=== PATIENT | female | born 1965 | race Caucasian/White ===

== ENCOUNTER 2016-10-11 06:04 | Inpatient (IN) ==
[2016-10-11] MEDS ORDERED: NS 1,000 ML IV ONE ×2 (06:35→10:36)
[2016-10-11 06:39] LABS: ALLEN TEST YES; BE -0.5 mmoll (-3.0-3.0); BLOOD TYPE ARTERIAL; DRAW SITE R RADIAL; MODALITY ROOM AIR; O2(CT) 17.1 mL/dL (15.0-23.0); PCO2(98.6) 34 mmHg (35-45); PO2(98.6) 79 mmHg (60-100); SAMPLE BLOOD; SAO2 97.5 % (95.0-100.0); THB 12.9 g/dL (11.5-17.4); pH(98.6) 7.44 (7.35-7.45)
[2016-10-11 06:45] LABS: MANUAL DIFF NEEDED? NO
[2016-10-11 06:56] LABS: BASO% 0.5 % (0.0-0.8); EOS# 0.05 X1000 (0.0-0.7); EOS% 1.3 % (0.0-10.0); HEMATOCRIT 37.6 % (37.0-47.0); HEMOGLOBIN 12.9 g/dL (12.0-16.0); LYMPH% 15.2 % (20.5-51.1); MCH 33.9 PG (27-31); MCHC 34.3 g/dL (33-37); MCV 98.9 FL (81-99); MONO% 5.1 % (1.7-9.3); NEUT% 77.9 % (42.2-75.2); PLT 121 X1000 (130-400)
--- NOTE | 2016-10-11 07:05 | Diag Imaging Result Doc PS360 ---
HEAD W/O CONTRAST - 10/11/2016 INDICATION: unresponsive TECHNIQUE: A CT dose reduction protocol was used. COMPARISON: 01/23/2016 FINDINGS: The ventricles and sulci are normal in size and contour. No intracranial mass or hemorrhage. The skull is intact. The sinuses mastoids and middle ears are clear. IMPRESSION: Negative exam. Electronically signed by Shorty Carnes 10/11/2016 7:03 AM
--- NOTE | 2016-10-11 07:06 | PROVIDER DOCUMENTATION ---
HPI-Neurological Disorder - General Chief Complaint: Unresponsive Stated Complaint: unresponsive Time Seen by Provider: 10/11/16 06:15 Source: family, EMS Allergies/Adverse Reactions: Patient Allergies Allergy/AdvReac Type Severity Reaction Status Date / Time morphine Allergy Intermediate SWELLING Verified 08/27/16 21:31 methylprednisolone Allergy RASH Verified 08/27/16 21:31 [From Medrol] Home Medications: Home Medication List Medication Instructions Recorded Confirmed Last Taken Type Rifaximin [Xifaxan] 550 mg PO BID 01/23/16 08/27/16 08/27/16 07:00 History Furosemide [Lasix] 40 mg PO BID #60 tablet 02/12/16 08/27/16 08/27/16 12:00 Rx Lactulose 30 ml PO TID #90 udc 02/12/16 08/27/16 08/27/16 07:00 Rx Nystatin Susp [Mycostatin Susp] 5 ml PO 4XDAY #1 bottle 02/12/16 08/27/16 16:00 Rx Pantoprazole Sodium [Protonix] 40 mg PO BID #60 tablet. 02/12/16 08/27/1604/04 07:00 Rx Ciprofloxacin HCl 500 mg PO DIRECTED 03/02/16 08/27/16 08/26/16 20:00 History Potassium Chloride E.r. 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 She has h/o coma if she does not take her Lactulose. Pt was with her boyfriend last night and the boyfriend called 911 for the AMS. Daughters denies SI/HI. Pt breathing on her own with foam in her mouth on ED arrival. B/l lung clear with stable vital signs. CT head done immediately. Severity: reports: moderate, severe Onset/Duration: reports: this morning, last night Timing: reports: still present Context: reports: found unresponsive by family Character of Altered Mental Status: reports: decreased responsiveness (Pt moves her exts spontaneously with neg Barbinski signs.) Any recent trauma/injury?: reports: none Cognitive Baseline: alert but confused Associated Symptoms: reports: loss of consciousness Similar Symptoms Previously?: Yes Recently seen or treated by another doctor?: Yes - Seizure Witnessed seizure?: No Review of Systems - Adult - REVIEW OF SYSTEMS - ADULT ROS:: unobtainable per condition Constitutional: reports: see HPI, eliana. denies: fever Eyes: reports: no symptoms reported Ears, Nose, Mouth & Throat: reports: no symptoms reported Cardiovascular: reports: no symptoms reported. denies: chest pain Respiratory: reports: see HPI. denies: shortness of breath Gastrointestinal: reports: no symptoms reported Genitourinary: reports: no symptoms reported Musculoskeletal: reports: no symptoms reported Integumentary: reports: no symptoms reported Neurological: reports: see HPI, other (Unresponsive) Psychiatric: reports: see HPI Endocrine: reports: no symptoms reported All Other Systems: Reviewed and Negative Past History - Adult - PAST MEDICAL HISTORY-ADULT Review of Records: reports: Old Records Reviewed, Nursing Assessment Review, Medications Reviewed Major Childhood Illnesses: reports: denies history Cardiovascular: reports: denies history Respiratory: reports: denies history Gastrointestinal: reports: hepatitis, liver disease (cirrhosis) Obstetrical/Gynecological: reports: denies history Genitourinary: reports: denies history Musculoskeletal: reports: denies history Neurological: reports: denies history Endocrine/Immune: reports: Lymphoma Other Conditions: reports: denies history - PRIOR SURGERIES/PROCEDURES Surgical/Procedure History: reports: appendectomy, hysterectomy, , back /neck - PRIOR HOSPITALIZATIONS Prior Hospitalizations: reports: for similar symptoms - IMMUNIZATION STATUS Childhood Immunizations: See Nurse Assessment Flu Vaccine: See Nurse Assessment - FAMILY HISTORY Family History: reviewed, not pertinent Physical Exam- Neurological - Physical Exam-Neuro Initial Vital Signs Reviewed: Yes General Appearance: no apparent distress, obtunded (Unresponsive, but can spontaneously moves her exts with neg Barbinski signs) Eye Exam: bilateral eye: PERRL, EOMI HENMT: normocephalic/atraumatic, moist mucous membranes Head Injury: no evidence of injury Neck: non-tender, full range of motion, supple Respiratory: lungs clear, normal breath sounds, no pleuratic chest pain, no respiratory distress, no accessory muscle use. 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 Exam: PERRL, other (See above) Neurologic: other (See above) Integumentary: normal color, normal turgor - Glascow Coma Scale Best Eye Response: (2) open to pain Best Verbal Response: (3) inappropriate words Best Motor Response: (4) withdraws to pain Total Glascow Score: 9 Progress - PLAN OF CARE/RESULTS Progress/Plan/Lab Results: Vital Signs - 8 hr 10/11/16 06:15 Temperature 98.1 F Pulse Rate 98 H Respiratory Rate 17 Blood Pressure 137/82 O2 Sat by Pulse Oximetry 100 Laboratory Results - last 24 hr 10/11/16 10/11/16 10/11/16 06:27 06:27 06:27 WBC 3.96 L RBC 3.80 L Hgb 12.9 Hct 37.6 MCV 98.9 MCH 33.9 H MCHC 34.3 RDW Std Deviation 15.8 H Plt Count 121 L MPV 10.0 Immature Gran % (Auto) 0.0 Neut % (Auto) 77.9 H Lymph % (Auto) 15.2 L Atlantic % (Auto) 5.1 Eos % (Auto) 1.3 Baso % (Auto) 0.5 Immature Gran # (Auto) 0.00 Neut # (Auto) 3.09 Lymph # (Auto) 0.60 L Atlantic # (Auto) 0.20 Eos # (Auto) 0.05 Baso # (Auto) 0.02 Specimen Type Sample Site pH pCO2 pO2 HCO3 Base Excess Oxyhemoglobin ABG O2 Sat (Calculated) ABG O2 Saturation ABG Carboxyhemoglobin ABG Methemoglobin Alex Test A-a O2 Difference Total Hemoglobin Lactate Blood Gas Modality FiO2 % Sodium 141 Potassium 4.9 Chloride 105 Carbon Dioxide 19 L Anion Gap 17 BUN 18 Creatinine 0.7 Estimated GFR/1.73 m2 > 60 BUN/Creatinine Ratio 26 Glucose 126 H Calculated Osmolality 285 Calcium 9.2 Total Bilirubin 2.78 H AST 62 H ALT 29 Alkaline Phosphatase 342 H Ammonia Creatine Kinase 338 H Troponin T Total Protein 5.6 L Albumin 3.2 L Globulin 2.4 Albumin/Globulin Ratio 1.3 Lipase Plasma/Serum Ethyl Alc 10/11/16 10/11/16 10/11/16 06:27 06:27 06:27 WBC RBC Hgb Hct MCV MCH MCHC RDW Std Deviation Plt Count MPV Immature Gran % (Auto) Neut % (Auto) Lymph % (Auto) Atlantic % (Auto) Eos % (Auto) Baso % (Auto) Immature Gran # (Auto) Neut # (Auto) Lymph # (Auto) Atlantic # (Auto) Eos # (Auto) Baso # (Auto) Specimen Type Sample Site pH pCO2 pO2 HCO3 Base Excess Oxyhemoglobin ABG O2 Sat (Calculated) ABG O2 Saturation ABG Carboxyhemoglobin ABG Methemoglobin Alex Test A-a O2 Difference Total Hemoglobin Lactate Blood Gas Modality FiO2 % Sodium Potassium Chloride Carbon Dioxide Anion Gap BUN Creatinine Estimated GFR/1.73 m2 BUN/Creatinine Ratio Glucose Calculated Osmolality Calcium Total Bilirubin AST ALT Alkaline Phosphatase Ammonia 277 H Creatine Kinase Troponin T < 0.010 Total Protein Albumin Globulin Albumin/Globulin Ratio Lipase 14 Plasma/Serum Ethyl Alc 10/11/16 06:30 WBC RBC Hgb Hct MCV MCH MCHC RDW Std Deviation Plt Count MPV Immature Gran % (Auto) Neut % (Auto) Lymph % (Auto) Atlantic % (Auto) Eos % (Auto) Baso % (Auto) Immature Gran # (Auto) Neut # (Auto) Lymph # (Auto) Atlantic # (Auto) Eos # (Auto) Baso # (Auto) Specimen Type ARTERIAL Sample Site R RADIAL pH 7.44 pCO2 34 L pO2 79 HCO3 24.5 Base Excess -0.5 Oxyhemoglobin 94.2 L ABG O2 Sat (Calculated) 17.1 ABG O2 Saturation 97.5 ABG Carboxyhemoglobin 2.40 ABG Methemoglobin 1.0 Alex Test YES A-a O2 Difference 28.0 Total Hemoglobin 12.9 Lactate 2.90 H Blood Gas Modality ROOM AIR FiO2 % 21.0 Sodium Potassium Chloride Carbon Dioxide Anion Gap BUN Creatinine Estimated GFR/1.73 m2 BUN/Creatinine Ratio Glucose Calculated Osmolality Calcium Total Bilirubin AST ALT Alkaline Phosphatase Ammonia Creatine Kinase Troponin T Total Protein Albumin Globulin Albumin/Globulin Ratio Lipase Plasma/Serum Ethyl Alc Orders Category Date Time Status Cardiac Monitoring DIRECTED Care 10/11/16 06:08 Active Finger Stick Blood Sugar (ED) DIRECTED Care 10/11/16 06:08 Active NG/OG/Feeding Tube Insertion ORDERED Care 10/11/16 07:40 Ordered Oxygen Therapy- ED Nursing DIRECTED Care 10/11/16 06:08 Active Saline Loc NOW Care 10/11/16 06:08 Active enema [Tap water enema] DIRECTED Care 10/11/16 07:40 Ordered CHEST-PORTABLE [RAD] Stat Exams 10/11/16 06:07 Ordered HEAD W/O CONTRAST [CT] Stat Exams 10/11/16 06:05 Completed ABG [RESP] Routine Lab 10/11/16 06:30 Completed ALCOHOL BLOOD Stat Lab 10/11/16 06:27 Completed AMMONIA [CHEM] Stat Lab 10/11/16 06:27 Completed BLOOD CULTURE [BLDCUL] Stat Lab 10/11/16 06:35 Uncollected CBC WITH ELECTRONIC DIFF [HEME] Stat Lab 10/11/16 06:27 Completed CK PROFILE [SP CHEM] Stat Lab 10/11/16 06:27 Results COMPREHENSIVE METABOLIC PANEL [CHEM] Stat Lab 10/11/16 06:27 Results LACTATE, PLASMA [CHEM] Stat Lab 10/11/16 06:08 Uncollected LIPASE [CHEM] Stat Lab 10/11/16 06:27 Completed PROTIME WITH INR [COAG] Stat Lab 10/11/16 06:34 Ordered PTT [COAG] Stat Lab 10/11/16 06:34 Ordered TROPONIN T Stat Lab 10/11/16 06:27 Completed URINALYSIS W/POSS RFLX CULT-1 [URINALYSIS] Stat Lab 10/11/16 06:08 Uncollected URINE DRUG SCREEN Stat Lab 10/11/16 06:08 Uncollected 0.9% Sodium Chloride Inj [Ns] 1,000 ml Med 10/11/16 06:35 Active IV 250 mls/hr Lactulose Med 10/11/16 07:40 Once 30 ml NG NOW ONE Pulse Oximetry Stat Oth 10/11/16 06:08 Active Result Diagrams: 10/11/16 06:27 10/11/16 06:27 - CT/MRI 1 CT Study: Head Impression: Normal - CONSULTS/PCP/HOSPITALIST Notification Time Discussed: 07:43 Reason/Comments: Admit to Dr. Hannon/ICU Consult Disposition: Admit Departure - Departure Time of Disposition Decision: 07:44 DIAGNOSIS: Encephalopathy acute, Hyperammonemia Disposition: ADMITTED INPATIENT 09 Certified Medical Emergency: Emergent Condition: Serious Referrals and Follow-Ups: None,PCP [Primary Care Provider] - - Critical Care Note This patient required my direct & personal management of CC.: Yes Total Time (mins): 45 Critical Care Statement: This patient required my direct personal management to treat or rule out processes, the absence of which, could potentiallly result in sudden, clinically significant life or limb threatening deterioration.
[2016-10-11 07:23] LABS: AGAP 17; ALBUMIN 3.2 g/dL (3.5-5.0); ALKALINE PHOSPHATASE 342 U/L (32-104); BUN 18 mg/dL (8-22); CALCIUM 9.2 mg/dL (8.8-10.2); CHLORIDE 105 mmol/L (98-107); COSMO 285; GOT 62 U/L (10-30); GPT 29 U/L (10-36); POTASSIUM 4.9 mmol/L (3.5-5.1); SODIUM 141 mmol/L (136-145); TCO2 19 mmol/L (25-35); TOTAL BILIRUBIN 2.78 mg/dL (0.20-1.00); TOTAL PROTEIN 5.6 g/dL (6.3-8.3)
[2016-10-11 07:36] LABS: CK PROFILE 338 U/L (24-173)
[2016-10-11] MEDS ORDERED: LACTULOSE NG ONE (07:40)
[2016-10-11] MEDS ORDERED: ROCEPHIN 2 GM/NS 2 GM/50 ML IVPB IV ONE (07:43)
[2016-10-11 07:50] LABS: CK INDEX 2.3 (0.0-2.5); CK-MB 7.87 ng/mL (0.0-5.0)
[2016-10-11 08:25] LABS: INR 1.23; PROTIME 13.1 Seconds (9.2-11.7); PTT 25.9 Seconds (22.0-36.0)
--- NOTE | 2016-10-11 08:28 | HISTORY AND PHYSICAL ---
HISTORY OF PRESENT ILLNESS: A 50-year-old with past medical history of hepatitis C long-term cirrhosis and I believe lymphoma. Patient was brought into the emergency room. The family stated that for the last 3 or 4 days she has been very lethargic; yesterday was worse. They tried to give her a couple doses of her lactulose with no improvement, very lethargic and very confused. She is breathing comfortably and appears in no pain or distress. No fever reported. No abdominal pain. Her ammonia level was 220. Will admit for hepatic encephalopathy. PAST MEDICAL HISTORY REVIEWED: 1. Hepatitis C cirrhosis. 2. End-stage renal disease. 3. Lymphoma. PAST SURGICAL HISTORY: 1. Appendectomy. 2. Hysterectomy. 3. . 4. Back and neck surgery. FAMILY HISTORY: None pertinent. SOCIAL HISTORY: Patient I believe is living by herself with her with her boyfriend. Does not have any home health or hospice care. I believe she still smokes a pack of cigarettes a day. ALLERGIES: To morphine and Medrol. REVIEW OF SYSTEMS: General: No reports of fever or chills. HEENT: Confusion. No reports of change in vision or hearing acuity. Respiratory: No increased work of breathing or dyspnea. Cardiovascular: No chest pain or tachy palpitation. GI/: They have not noticed any change. No blood in the bowels. No gross hematuria, dysuria. Musculoskeletal/Neurologic: No focal complaints. PHYSICAL EXAM: VITAL SIGNS: In the emergency room, temperature 98.1 degrees, pulse 98, respirations 17, blood pressure 137/82. HEENT: Pupils are equal, round. LUNGS: Clear in all lung cassidy. CARDIOVASCULAR EXAM: Regular rhythm and rate without murmur or S3. ABDOMEN: Soft. SKIN: Warm and dry. LABS: White count 3960, hematocrit is 37, platelet count 121,000. Sodium 141, potassium 4.9, chloride 105, bicarbonate 19. BUN 18 and creatinine 0.7. Alkaline phosphatase 342, AST 62, ALT 29, ammonia level of 277, albumin 3.2. ABGs: The pH 7.44, pCO2 34, PO2 79, O2 saturation is 94% on room air. IMAGING: CT of her head was a negative exam. ASSESSMENT AND PLAN: 1. Hepatic encephalopathy. We will place a nasogastric tube. Start giving her lactulose. Respiratory status and cardiac status appear pretty stable at this point. She has underlying hepatitis C with cirrhosis. 2. Apparently she is still smoking, aware. 3. I think has not eaten or drank much fluids. Appears to be of mild volume depletion, so we will give her normal saline. cc: Alex Valencia MD
[2016-10-11 08:35] LABS: URINE CULTURE NEEDED? NO; URINE MICRO REVIEW NEEDED? NO; URINE SOURCE CATH
[2016-10-11 08:38] LABS: BILIRUBIN URINE NEGATIVE (NEGATIVE); BLOOD URINE NEGATIVE (NEGATIVE); COLOR YELLOW; GLUCOSE URINE NEGATIVE (NEGATIVE); LEUKOCYTES URINE NEGATIVE (NEGATIVE); NITRITE URINE NEGATIVE (NEGATIVE); PROTEIN URINE TRACE mg/dL (NEGATIVE); SP GRAVITY URINE 1.027; TURBIDITY URINE CLEAR (CLEAR); UROBILINOGEN URINE NORMAL (NORMAL)
[2016-10-11 08:39] LABS: UR EPITHELIAL CELLS <10 /HPF (<10); URINE BACTERIA NEGATIVE /HPF; URINE RBC <10 /HPF (<10); URINE WBC <10 /HPF (<10)
[2016-10-11 09:15] LABS: UR AMPHETAMINES QUAL NONE DETECTED (NONE DETECT); UR BARBITUATES QUAL NONE DETECTED (NONE DETECT); UR BENZODIAZEPIN QUAL NONE DETECTED (NONE DETECT); UR CANNABINOIDS QUAL NONE DETECTED (NONE DETECT); UR COCAINE QUAL NONE DETECTED (NONE DETECT); UR METHADONE QUAL NONE DETECTED (NONE DETECT); UR OPIATES QUAL PRESUMPTIVE POSITIVE (NONE DETECT); UR PCP QUAL NONE DETECTED (NONE DETECT)
[2016-10-11 09:35] LABS: UR OXYCODONE QUAL NONE DETECTED (NONE DETECT)
--- NOTE | 2016-10-11 09:48 | Diag Imaging Result Doc PS360 ---
EXAM: CHEST-PORTABLE INDICATION: AMS TECHNIQUE: One view COMPARISON: 02/07/2016 FINDINGS: There is an NG tube in place projecting below the diaphragm and assumed to be in the stomach. There is suggestion of a small left pleural effusion with adjacent mild atelectasis and/or infiltrate. Right lung is grossly clear. Cardiac silhouette and central vasculature are grossly unremarkable. Magnification related to AP technique. IMPRESSION: 1.Small left pleural effusion with adjacent atelectasis and/or infiltrate. 2.NG tube in the expected position. Electronically signed by Adebayo Fam 10/11/2016 9:45 AM
[2016-10-11] MEDS ORDERED: ZOFRAN IV PRN (10:36)
[2016-10-11] MEDS ORDERED: LACTULOSE PO ONE (10:36)
[2016-10-11] MEDS: THIAMINE 100 MG in NS 50 ML IV SCH (11:00)
--- NOTE | 2016-10-11 13:17 | EKG Report ---
Test Performed on : 10/11/2016 09:18:38 AM Test Reason : ED. Not ordered in [place]. Blood Pressure : / mmHG Vent. Rate : 107 BPM Atrial Rate : 107 BPM P-R Int : 136 ms QRS Dur : 082 ms QT Int : 294 ms P-R-T Axes : 043 019 019 degrees QTc Int : 392 ms Sinus tachycardia. with frequent premature ventricular complexes. Otherwise normal ECG When compared with ECG of 23-JAN-2016 10:12, premature ventricular complexes. are now present Nonspecific T wave abnormality, improved in Lateral leads Confirmed by Jourdan Zhu MD ([id number]) on 10/15/2016 8:17:07 AM
[2016-10-11] MEDS: LACTULOSE PO SCH ×3 (13:22→22:00)
[2016-10-11] MEDS: XIFAXAN PO SCH ×2 (13:23→20:48)
[2016-10-11] MEDS: PATIENT'S OWN MED PO SCH (19:24)
[2016-10-11] MEDS ORDERED: VASELINE TOP PRN (20:36)
[2016-10-12] MEDS: LACTULOSE PO SCH ×5 (02:00→16:46)
[2016-10-12 05:26] LABS: BASO% 0.5 % (0.0-0.8); EOS% 2.5 % (0.0-10.0); HEMATOCRIT 34.5 % (37.0-47.0); HEMOGLOBIN 11.5 g/dL (12.0-16.0); LYMPH# 0.68 X1000 (1.2-3.4); LYMPH% 17.1 % (20.5-51.1); MANUAL DIFF NEEDED? YES; MCHC 33.3 g/dL (33-37); MCV 102.1 FL (81-99); MONO# 0.35 X1000 (0.11-0.59); MONO% 8.8 % (1.7-9.3); MPV 9.8 FL (7.4-10.4); NEUT% 71.1 % (42.2-75.2); PLT 99 X1000 (130-400); RBC 3.38 XMIL (4.2-5.4)
[2016-10-12 05:42] LABS: AGAP 12; ALKALINE PHOSPHATASE 255 U/L (32-104); BUN 12 mg/dL (8-22); CALCIUM 8.9 mg/dL (8.8-10.2); CHLORIDE 114 mmol/L (98-107); COSMO 292; GOT 129 U/L (10-30); GPT 35 U/L (10-36); MAGNESIUM 1.7 mg/dL (1.5-2.7); POTASSIUM 3.5 mmol/L (3.5-5.1); SODIUM 147 mmol/L (136-145); TCO2 21 mmol/L (25-35); TOTAL BILIRUBIN 3.04 mg/dL (0.20-1.00); TOTAL PROTEIN 4.8 g/dL (6.3-8.3)
[2016-10-12 06:08] LABS: EOS 2 % (1-10); LYMPHS 16 % (21-51); MONO 2 % (1-9)
[2016-10-12] MEDS: PATIENT'S OWN MED PO SCH (08:18)
[2016-10-12] MEDS: XIFAXAN PO SCH ×2 (08:18→22:24)
[2016-10-12] MEDS: ALDACTONE PO SCH (09:21)
--- NOTE | 2016-10-12 09:32 | Diag Imaging Result Doc PS360 ---
KUB ABDOMEN - 10/12/2016 INDICATION: cirrhosis TECHNIQUE: COMPARISON: 01/25/2016 FINDINGS: There is a nonobstructive bowel gas pattern. No free air or abnormal calcifications. There is probably a small to moderate left pleural effusion. IMPRESSION: Left pleural effusion. No acute disease in the abdomen. Electronically signed by Shorty Carnes 10/12/2016 9:30 AM
--- NOTE | 2016-10-12 10:33 | PROGRESS NOTE ---
DATE: 10/12/2016 SUBJECTIVE: She is awake and alert, and wants the NG tube out. She is oriented x3 and she is hungry. No abdominal pain. OBJECTIVE: Vital Signs: Afebrile, pulse 100, respirations 17, blood pressure 131/67. Neck: No distended neck veins. Respiratory: Lungs are clear. Cardiovascular: Regular rhythm and rate without murmurs. Abdomen: Nondistended and nontender. Good urine output, she has had over 4 L. LAB: White count this morning 3980, hematocrit is stable at 34, platelet count 99,000. Sodium 147, potassium 3.5, chloride 114, BUN 12, creatinine 0.5. Blood sugars of 105, 95, and 93. Liver functions AST is 129, ALT is 35, alkaline phosphatase of 255, albumin 3.1. TSH was 0.83. ASSESSMENT AND PLAN: Hepatitis C, hepatitis portal hypertension, hepatic encephalopathy with ammonia level on presentation of 270, and it has come down to 47, clinically better. We will move her to the floor, and advance her to hepatic diet, and take out the NG tube, may get to go home later on today. Switch her over to lactulose 30 mL p.o. t.i.d. She will continue her other medications as before. She is on the rifaximin 550 mg b.i.d. cc: Alex Valencia MD
[2016-10-12] MEDS: THIAMINE 100 MG in NS 50 ML IV SCH (11:18)
[2016-10-13 04:36] VITALS: BP 99/50
[2016-10-13 06:23] LABS: MANUAL DIFF NEEDED? NO
[2016-10-13 06:30] LABS: BASO% 0.7 % (0.0-0.8); EOS# 0.13 X1000 (0.0-0.7); EOS% 4.9 % (0.0-10.0); HEMOGLOBIN 9.5 g/dL (12.0-16.0); LYMPH# 0.63 X1000 (1.2-3.4); LYMPH% 23.6 % (20.5-51.1); MCH 33.3 PG (27-31); MCHC 32.8 g/dL (33-37); MCV 101.8 FL (81-99); MONO# 0.28 X1000 (0.11-0.59); MONO% 10.5 % (1.7-9.3); MPV 10.4 FL (7.4-10.4); NEUT% 60.3 % (42.2-75.2); PLT 91 X1000 (130-400); RBC 2.85 XMIL (4.2-5.4)
[2016-10-13 06:43] LABS: AGAP 8; ALBUMIN 2.5 g/dL (3.5-5.0); ALKALINE PHOSPHATASE 248 U/L (32-104); BUN 8 mg/dL (8-22); CALCIUM 8.5 mg/dL (8.8-10.2); CHLORIDE 108 mmol/L (98-107); COSMO 283; GOT 139 U/L (10-30); GPT 43 U/L (10-36); MAGNESIUM 1.5 mg/dL (1.5-2.7); SODIUM 142 mmol/L (136-145); TCO2 26 mmol/L (25-35); TOTAL BILIRUBIN 2.09 mg/dL (0.20-1.00); TOTAL PROTEIN 4.4 g/dL (6.3-8.3)
[2016-10-13] MEDS: XIFAXAN PO SCH (08:34)
[2016-10-13] MEDS: ALDACTONE PO SCH (08:34)
[2016-10-13] MEDS: LACTULOSE PO SCH (08:35)
[2016-10-13] MEDS: PATIENT'S OWN MED PO SCH (08:36)
[2016-10-13] MEDS ORDERED: NEOSPORIN OINTMENT TUBE TOP PRN (09:00)
--- NOTE | 2016-10-13 11:06 | DISCHARGE SUMMARY ---
ADMISSION DATE: 10/11/2016 DISCHARGE DATE: 10/13/2016 HISTORY OF PRESENT ILLNESS: This is a 50-year-old with a history of hepatitis C, long-term cirrhosis, and I believe a history lymphoma. The patient was brought into the emergency room. Family states that for the last 4 days or so, very lethargic and confused. Was not taking her lactulose. Her ammonia level was 270. HOSPITAL COURSE: She was very sleepy, appeared hemodynamically stable. Breathing status was good. Good air exchange. Nonetheless, we put her up in the unit. Started an NG tube. Give her lactulose 45 mL q.4 hours. The following morning, her ammonia level was down to 40. Feeling better and she was able to eat. Advanced her diet on 10/12/2016. Followup lab, her ammonia level was 95 so we will have her go home and make sure she stays on her regular dose of lactulose, rifaximin. DISCHARGE ORDERS: She will be on her Colcrys 0.6 mg b.i.d. p.r.n., Lasix 40 mg p.o. b.i.d., lactulose 30 mL t.i.d., Harvoni 90-500 which is ledipasvir/sofosbuvir for hepatitis C. It is a 90/400 combination, 1 tablet a day. Protonix 40 mg b.i.d., Klor-Con ER 20 mEq daily, rifaximin mg b.i.d., spironolactone 100 mg daily. Follow up with her primary care. cc: Alex Valencia MD
== END 2016-10-13 11:13 | disposition home or self-care (01) ==
LOC: ED 06:04 → SUATTDRO 09:14 → ICU 09:14 → 3N 10-12 11:41
PROVIDERS: ATTEND Emergency Medicine